=== PATIENT | female | born 1950 | race Caucasian/White ===

== ENCOUNTER 2016-02-27 10:23 | Outpatient (CLI) | payer OTHER ==
[2014-04-27 10:48] VITALS: BMI 30.4
== END 2016-02-27 10:24 | disposition home or self-care (01) ==
LOC: WOUND 10:23
PROVIDERS: ATTEND Nurse Practitioner Family
DX: Z01.89 Encounter for other specified special examinations (principal)
CPT/HCPCS: 99202; 99212

== ENCOUNTER 2016-08-13 16:45 | Outpatient (CLI) ==
[2014-04-27 10:48] VITALS: BMI 30.4
[2016-08-13 16:54] LABS: BILIRUBIN,URINE Negative (NEGATIVE); KETONES,URINE Negative (NEGATIVE); LEUKOCYTE ESTERASE ,URINE Negative (NEGATIVE); NITRITE,URINE Negative (NEGATIVE); PROTEIN,URINE Negative (NEGATIVE); URINE, BLOOD Negative (NEGATIVE)
[2016-08-13 16:56] LABS: ADD URINE MICROSCOPIC NO
== END 2016-08-13 16:46 | disposition home or self-care (01) ==
LOC: NONPT 16:45
PROVIDERS: ATTEND Family Medicine
DX: N31.9 Neuromuscular dysfunction of bladder, unspecified (principal)
CPT/HCPCS: 81001

== ENCOUNTER 2017-05-24 20:25 | Emergency (ER) | payer OTHER ==
[2017-05-24] MEDS ORDERED: SODIUM CHLORIDE 1,000 ML IV STA (20:29)
[2017-05-24] MEDS ORDERED: NARCAN IVP STA (20:30)
[2017-05-24] MEDS ORDERED: NARCAN ONE (20:32)
[2017-05-24 20:40] VITALS: BMI 23.1
--- NOTE | 2017-05-24 22:13 | ED.PDOC ---
General ED Provider: Dr. MATT SALAS-ER Chief Complaint: Overdose Stated Complaint: accidentally took too much morphine Time Seen by Physician: 20:30 Mode of Arrival: Ambulance Information Source: EMT Exam Limitations: No limitations Primary Care Provider: MATT SALAS Nursing and Triage Documentation Reviewed and Agree: Yes Reviewed sepsis parameters & appropriate labs ordered?: Yes System Inflammatory Response Syndrome: Not Applicable Sepsis Protocol: For patient's 13 years and over: Temp is 96.8 and below OR 101 and greater Pulse >90 BPM Resp >20/minute Acutely Altered Mental Status Are patient's symptoms suggestive of a new infection, such as: -Pneumonia -Skin, Soft Tissue -Endocarditis -UTI -Bone, Joint Infection -Implantable Device -Acute Abdominal Infection -Wound Infection -Meningitis -Blood Stream Catheter Infection -Unknown Neurological Complaint Exam - Weakness Complaint/Exam Last Known Well: today Onset: Sudden Symptoms Are: Still present Timing: Constant Initial Severity: Mild Current Severity: Moderate Character: Reports: Weak Aggravating: Reports: None Alleviating: Reports: None Associated Signs and Symptoms: Reports: Change in medication JVD Present: No Carotid Bruit Present: No Nystagmus Present: No Gag Reflex Present: Yes Meningeal Signs Positive: No Focal Weakness: Present: None Focal Sensory Loss: Present: None Gait: Ataxic Differential Diagnoses: Other Quality Indicators for Cardiac Chest Pain: EKG in 10min. Review of Systems - Review Of Systems Constitutional: Reports: No symptoms Eyes: Reports: No symptoms Ears, Nose, Mouth, Throat: Reports: No symptoms Respiratory: Reports: Short of air, Other (apnea) Cardiac: Reports: No symptoms GI: Reports: No symptoms : Reports: No symptoms Musculoskeletal: Reports: No symptoms Skin: Reports: No symptoms Neurological: Reports: Cognitive dysfunction, Weakness Endocrine: Reports: No symptoms Hematologic/Lymphatic: Reports: No symptoms All Other Systems: Reviewed and Negative Past Medical History - Past Medical History Previously Healthy: No Endocrine: Reports: Unknown Cardiovascular: Reports: Unknown Respiratory: Reports: Unknown Hematological: Reports: Unknown Gastrointestinal: Reports: Unknown Genitourinary: Reports: Unknown Neuro/Psych: Reports: Dementia Musculoskeletal: Reports: Unknown Cancer: Reports: Unknown Last Menstrual Period: menopausal - Surgical History General Surgical History: Reports: Unknown - Family History Family History: Reports: Unknown - Social History Smoking Status: Never smoker Hx Substance Use: No Alcohol Screening: Occasionally - Immunizations Tetanus Shot up to Date: No (unknown) Physical Exam - Physical Exam Appearance: Ill-appearing Ill-appearing: Moderate Eyes: HEAVEN, EOMI, Conjunctiva clear ENT: Ears normal, Nose normal, Oropharynx normal Neck: Supple Respiratory: Airway patent, Breath sounds clear, Breath sounds equal, Respirations nonlabored Cardiovascular: RRR, Pulses normal, No rub, No murmur GI/: Soft, Nontender, No masses, Bowel sounds normal, No Organomegaly Musculoskeletal: Normal strength, ROM intact, No edema, No calf tenderness Skin: Warm, Dry, Normal color Neurological: Motor intact, Reflexes intact, Cranial nerves intact, Alert to verbal, Alert to pain, Unresponsive Psychiatric: Affect appropriate, Mood appropriate Physician Notification - Case Discussed Physician Notified: jin with hospice--agreeable with hospice care center Critical Care Note - Critical Care Note Total Time (mins): 30 Course - Course Orders, Labs, Meds: Orders Category Date Time Status EKG-(ED ONLY) Stat CARDIO 05/24/17 20:30 Completed High Voltage Electrician [ED WILDLIFE BIOSTATION RESEARCH ECOLOGIST APPLIED] .ONCE EMERGENCY 05/24/17 20:30 Active ED IV/MEDIPORT/POWERPORT .ONCE EMERGENCY 05/24/17 20:29 Active 0.9 % Sodium Chloride [Saline Flush] MEDS 05/24/17 20:29 Ordered 1 syr IVF PRN PRN Naloxone HCl [Narcan] MEDS 05/24/17 20:32 Discontinued 0.4 mg .ROUTE .STK-MED ONE Naloxone HCl [Narcan] MEDS 05/24/17 20:30 Discontinued 0.4 mg IVP ONCE STA Sodium Chloride 0.9% [Sodium Chloride] 1,000 ml MEDS 05/24/17 20:29 Active IV 100 mls/hr Medications Generic Name Dose Route Start Last Admin Trade Name Freq PRN Reason Stop Dose Admin Sodium Chloride 1,000 mls @ 100 mls/hr 05/24/17 20:29 05/24/17 20:57 Sodium Chloride IV 05/25/17 06:28 100 mls/hr .Q10H STA Administration Sodium Chloride 1 syr 05/24/17 20:29 Saline Flush IVF PRN PRN To flush IV Discontinued Medications Generic Name Dose Route Start Last Admin Trade Name Freq PRN Reason Stop Dose Admin Naloxone HCl 0.4 mg 05/24/17 20:30 05/24/17 20:30 Narcan IVP 05/24/17 20:31 0.4 mg ONCE STA Administration Vital Signs: Temp Pulse Resp BP Pulse Ox 05/24/17 20:25 96.8 F L 138 H 12 136/85 100 Departure - Departure Time of Disposition: 22:13 Disposition: TSF SHORT-TRM HOSP Discharge Problem: Drug overdose Condition: Stable Pt referred to PMD for follow-up: Yes IPMP verified?: No Allergies/Adverse Reactions: Allergies levofloxacin [From [facility]] Adverse Reaction (Verified 05/24/17 20:53) Home Medications: Ambulatory Orders Calcium Crb,Cit/D3/Min34/Rufus [Citracal + Bone Density Tablet] 2 each PO DAILY 04/27/14 Carbidopa/Levodopa [Sinemet 25-100] 1 tab PO TID 04/27/14 Cranberry Extract [Cranberry] 200 mg PO DAILY 04/27/14 Lactobacil 2-S.thermo-Bifido 1 [Vsl#3 Capsule] 1 each PO BID 04/27/14 Melatonin 10 mg PO BEDTIME 04/27/14 Multivitamin 1 cap PO DAILY 04/27/14 Nitrofurantoin Macrocrystal [Macrodantin] 50 mg PO BEDTIME 04/27/14 Rosuvastatin Calcium [Crestor] 20 mg PO DAILY 04/27/14 Sertraline HCl 12.5 mg PO DAILY 04/27/14 Ubidecarenone [Co Q-10] 10 mg PO DAILY 04/27/14 Vitamin E 1,000 unit PO DAILY 04/27/14 Transfer Form Completed: Yes Disposition Discussed With: Family
[2017-05-24 22:21] VITALS: BP 78/54; TEMP 97.4
== END 2017-05-24 22:40 | disposition short-term general hospital (02) ==
LOC: ED 20:25
DX: T40.2X1A Poisoning by other opioids, accidental (unintentional), initial encounter (principal); R06.02 Shortness of breath; R53.1 Weakness; R40.2431 Glasgow coma scale score 3-8, in the field [EMT or ambulance]; R40.4 Transient alteration of awareness
CPT/HCPCS: 93005; 93010; 96361; 96374; 96375; 99285